=== PATIENT | female | born 1985 | race Hispanic/Latino ===

== ENCOUNTER 2017-06-26 15:33 | Observation (INO) | payer OTHER ==
[~2017-06-26] VITALS: Ht 162.6 cm; Wt 62.1 kg
[2017-06-26] MEDS ORDERED: ACETAMINOPHEN 325 MG TAB PO STA (16:13)
--- NOTE | 2017-06-26 16:56 | Diagnostic Imaging Report ---
PROCEDURE: Frontal and lateral views of the chest. COMPARISON: None. INDICATIONS: COUGH, FEVER, CHEST PAIN, CONGESTION FINDINGS: Lines/tubes: None. Lungs: The lungs are well inflated. Ill-defined opacity in the left lower lobe. There is no evidence of pneumonia or pulmonary edema. Pleura: There is no pleural effusion or pneumothorax. Heart and mediastinum: The heart and the mediastinum are normal. Bones: No acute bony abnormality. IMPRESSION: 1. ill-defined opacity in the left lower lobe, likely representing developing pneumonia given the clinical symptoms Regis Estevez M.D. Dictated by: Regis Estevez M.D. on 06/26/2017 at 16:55 Electronically approved by: Regis Estevez M.D. on 06/26/2017 at 16:55
[2017-06-26] MEDS ORDERED: AZITHROMYCIN 250 MG TAB PO ONE (17:30)
[2017-06-26] MEDS ORDERED: CEFTRIAXONE SOD 1 GM VIAL IM ONE (17:30)
[2017-06-26] MEDS ORDERED: HYDROCODONE/CHLORPHENIRAMINE 5 ML LIQCR PO PRN (17:30)
[2017-06-26] MEDS ORDERED: AZITHROMYCIN 500MG/SOD CHL 0.9% 250ML BAG IV SCH (17:45)
[2017-06-26] MEDS ORDERED: AZITHROMYCIN 500MG/NS 250 ML 250 ML IV SCH (18:00)
[2017-06-26 18:40] LABS: BASOPHILS % 0.5 % (0.0-1.0); HEMATOCRIT 31.8 % (34.2-44.1); HEMOGLOBIN 11.1 g/dL (12.0-16.0); LYMPHOCYTES # (AUTO) 0.2 (1.0-3.2); LYMPHOCYTES % 5.4 % (18.0-39.1); MEAN CORPUSCULAR HEMOGLOBIN 33.1 pg (28-32); MEAN CORPUSCULAR HGB CONC 34.9 g/dL (31-35); MEAN CORPUSCULAR VOLUME 94.9 fL (81-99); MONOCYTES # (AUTO) 0.1 (0.2-0.8); NEUTROPHILS # (AUTO) 3.6 (2.1-6.9); NEUTROPHILS % 91.3 % (38.7-80.0); PLATELET COUNT 232 x10e3/uL (140-360); RED BLOOD COUNT 3.35 x10e6/uL (3.6-5.1); RED CELL DISTRIBUTION WIDTH 18.8 % (11.7-14.4)
[2017-06-26 18:59] LABS: ALANINE AMINOTRANSFERASE 38 IU/L (0-55); ALBUMIN 3.5 g/dL (3.5-5.0); ALBUMIN/GLOBULIN RATIO 0.7 (0.8-2.0); ALKALINE PHOSPHATASE 60 IU/L (40-150); ANION GAP 15.7 mmol/L (8-16); BLOOD UREA NITROGEN 8 mg/dL (7-26); BUN/CREATININE RATIO 15 (6-25); CALCIUM 9.2 mg/dL (8.4-10.2); CARBON DIOXIDE 24 mmol/L (22-29); CHLORIDE 96 mmol/L (98-107); CREATININE, SERUM 0.52 mg/dL (0.57-1.11); EST GLOMERULAR FILTRATION RATE > 60 ML/MIN (60-); GLUCOSE 103 mg/dL (74-118); POTASSIUM 4.7 mmol/L (3.5-5.1); SODIUM 131 mmol/L (136-145)
[2017-06-26 19:26] LABS: BILIRUBIN,URINE NEGATIVE (NEGATIVE); COLOR,URINE YELLOW (YELLOW); KETONES,URINE NEGATIVE (NEGATIVE); LEUKOCYTE ESTERASE ,URINE TRACE (NEGATIVE); NITRITE,URINE NEGATIVE (NEGATIVE); PROTEIN,URINE DIPSTICK NEGATIVE (NEGATIVE); URINE UROBILINOGEN 0.2 mg/dL (0.2 - 1)
[2017-06-26 19:28] LABS: HYPOCHROMASIA SLIGHT; LYMPHOCYTES % (MANUAL) 2 % (19-48); MONOCYTES % (MANUAL) 4 % (3.4-9.0); NEUTROPHILS % (MANUAL) 94 % (40-74); PLATELET ESTIMATE ADEQUATE; PLATELET MORPHOLOGY COMMENT NORMAL; RBC MORPHOLOGY COMMENT NORMAL
[2017-06-26 19:30] LABS: CLARITY,URINE SL CLOUDY (CLEAR)
[2017-06-26 19:39] LABS: BACTERIA,URINE FEW /HPF; EPITHELIAL CELLS,URINE MODERATE /LPF; RBC,URINE 0-5 /HPF (0-5)
[2017-06-26] MEDS: CEFTRIAXONE SOD 1 GM VIAL IV SCH (20:01)
--- OUTSIDE RECORDS SUMMARY | 2017-06-26 20:41 | XMS REPORT | Summary of Care ---
Author Author ELDA Humphreys, ALEXA [facility] Unknown Address Unknown Phone Unavailable Care Team Providers Care Electrical And Radio Mock Up Mechanic Name Role Phone ELDA Humphreys, LAURA Unavailable Unavailable NIKIA PIÑA MD Unavailable Unavailable ELDA HAWKINS [place], LAURA Unavailable Unavailable Unavailable Unavailable Functional Status Name Dates Details Functional status health issues are not documented Status: Name Dates Details Cognitive status health issues are not documented Status: Problems Name Dates Details Arthralgia of both knees (719.46, M25.561) Status: Active Wrist pain, chronic, left (719.43, M25.532) Status: Active Wrist pain, chronic, right (719.43, M25.531) Status: Active Arthralgia of left hand (719.44, M25.542) Status: Active Arthralgia of right hand (719.44, M25.541) Status: Active Chronic pain of both ankles (719.47, M25.571) Status: Active Heartburn (787.1, R12) Status: Active Proximal leg weakness (729.89, R29.898) Status: Active Need for prophylactic vaccination and inoculation against influenza (V04.81, Z23) Status: Active Hematuria, microscopic (599.72, R31.29) Status: Active Elevated transaminase level (790.4, R74.0) Status: Active Productive cough (786.2, R05) Status: Active Upper respiratory infection with cough and congestion (465.9, J06.9) Status: Active Dyspnea (786.09, R06.00) Status: Active Anterior pleuritic pain (786.52, R07.81) Status: Active Leukopenia (288.50, D72.819) Status: Active Elevated sed rate (790.1, R70.0) Status: Active Encounter for [facility] current azathioprine therapy (V58.69, Z79.899) Status: Active Anemia (285.9, D64.9) Status: Active Costochondritis (733.6, M94.0) Status: Active Systemic lupus erythematosus (710.0, M32.9) Status: Active 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, 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 * Quantity: 120 Refills: 2 JAMALYARIA M.D., FAROKH * Start : 04-Sep-2016 Active TraMADol HCl - 50 MG Oral Tablet TAKE 1 TABLET PO EVERY 8 HOURS PRN PAIN * Quantity: 42 Refills: 0 JAMALYARIA M.D., FAROKH * Start : 29-May-2017 Active PredniSONE 10 MG Oral Tablet Take 30mg daily until next visit * Quantity: 42 Refills: 0 JAMALYARIA M.D., FAROKH * Start : 01-Jun-2017 Active Diclofenac Sodium 1 % Transdermal Gel APPLY TO CHEST, 2 GM OF GEL TO AFFECTED AREA 4 TIMES DAILY. DO NOT APPLY MORE THAN 8 GM DAILY TO ANY ONE AFFECTED AREA. * Quantity: 1 Refills: 0 JAMALYARIA M.D., FAROKH * Start : 20-Jun-2017 Active 100 GM Tube Allergies and Adverse Reactions Name Dates Details No Known Drug Allergies (Allergy) Status: Active Procedures Procedure Dates Details [QLH] DIRECT ANTIGLOBULIN TEST (ALAN) Date: 29-May-2017 [N] 2D Echo complete, with Doppler 51720 Date: 29-May-2017 CT Chest w contrast [id number] Date: 29-May-2017 Immunization Name Dates Details Fluzone Quadrivalent 0.5 ML Intramuscular Suspension Prefilled Syringe Lot #: [id number] on: 07-Mar-2016 Social History Name Dates Details - Status: Name Dates Details Never smoker Vital Signs Date Test Result Details [id number] BP Systolic 108 mm[Hg] Status: Comments: Location: LUE; Position: Sitting BP Diastolic 71 mm[Hg] Status: Comments: Location: LUE; Position: Sitting Weight 140 lb Status: Body Mass Index Calculated 24.03 kg/m2 Status: Body Surface Area Calculated 1.68 m2 Status: Temperature 98.1 f Status: Comments: Method: Oral Heart Rate 106 /min Status: Respiration Rate 15 /min Status: [id number]-Rrf-[id number]:46 BP Systolic 105 mm[Hg] Status: BP Diastolic 59 mm[Hg] Status: Weight 138 lb Status: Body Mass Index Calculated 23.69 kg/m2 Status: Body Surface Area Calculated 1.67 m2 Status: Temperature 98.4 f Status: Comments: Method: Oral Heart Rate 105 /min Status: Respiration Rate 16 /min Status: Results Date Description Value Details :00 [QLH] CBC (INCLUDES DIFF/PLT) WBC 4.1 {K/CMM} Range: 3.7-10.4 RBC 3.38 {M/CMM} (Below low threshold) Range: 4.20-5.40 Hgb 11.0 g/dl (Below low threshold) Range: 12.0-16.0 Hct 32.3 % (Below low threshold) Range: 36.0-48.0 MCV 95.8 fL Range: 80.0-98.0 MCH 32.5 pg (Above high threshold) Range: 27.0-31.0 MCHC 33.9 g/dl Range: 32.0-36.0 RDW 18.8 % (Above high threshold) Range: 11.5-14.5 Platelet 336 {K/CMM} Range: 133-450 Mean Platelet Volume 7.9 fL Range: 7.4-10.4 [id number]:00 [QLH] Differential Segmented Neutrophils 90.8 % (Above high threshold) Range: 45.0-75.0 Monocytes 1.4 % (Below low threshold) Range: 2.0-12.0 Lymphocytes 7.4 % (Below low threshold) Range: 20.0-40.0 Basophils 0.4 % Range: 0.0-1.0 Segs-Bands # 3.7 {K/CMM} Range: 1.5-8.1 Lymphocytes # 0.3 {K/CMM} (Below low threshold) Range: 1.0-5.5 Monocytes # 0.1 {K/CMM} Range: 0.0-0.8 :00 [QLH] RETICULOCYTE COUNT Reticulocyte Count Automated 0.8 % Range: 0.5-1.5 00 [QL] CREATINE KINASE, TOTAL Creatine Kinase 223 u/l (Above high threshold) Range: 12-191 [QL] TROPONIN I Troponin-I <0.02 ng/ml Range: 0.00-0.40 [QL] C-REACTIVE PROTEIN CRP 45.3 mg/L (Above high threshold) Range: <=2.9 :00 [QL] URINALYSIS, COMPLETE W/REFLEX TO CULTURE UA Color Yellow Range: Yellow UA Turbidity Slight (Abnormal) Range: Clear UA Spec Grav 1.012 Range: <=1.030 UA pH 6.0 Range: 5.0-8.0 UA Protein Negative mg/dl Range: Negative UA Glucose Negative mg/dl Range: Negative UA Ketones 20 mg/dl (Abnormal) Range: Negative UA Bili Negative Range: Negative UA Blood Negative Range: Negative UA Nitrite Negative Range: Negative UA Leuk Est Moderate (Abnormal) Range: Negative UA WBC 4 {/HPF} Range: 0-5 UA Bacteria Occasional {/HPF} Range: None Seen UA Mucus Few {/LPF} Range: None Seen UA Sq Epi Many {/LPF} (Abnormal) Range: Few UROBILINOGEN <=1.0 mg/dl Range: 0.1-1.0 :00 [QH] PROTEIN, TOTAL W/CREAT, RANDOM URINE U Creatinine 69.70 mg/dl Comments: No established reference ranges. Urine Protein Level 25.0 mg/dl Comments: No established reference ranges. U Prot/Creat 0.36 :00 [H] ALAN GEL ALAN Gel Int Positive 00 [QLH] COMPLEMENT COMPONENT C3C C3 Complement 81 mg/dl (Below low threshold) Range: 88-201 :00 [QLH] COMPLEMENT COMPONENT C4C C4 Complement 16 mg/dl Range: 16-47 [H] ALAN C3 C3 Interp Negative [QLH] HAPTOGLOBIN Haptoglobin 235 mg/dl (Above high threshold) Range: 16-200 : [QLH] VITAMIN B12 Vitamin B12 Level 1297 pg/ml Range: 254-1320 : [H] Iron, TIBC \T\ Ferritin Iron 31 ug/dL Range: 30-160 % Satur Fe 14 % Range: 12-57 TIBC 227 ug/dL (Below low threshold) Range: 228-428 UIBC 196 ug/dL Range: 110-370 Ferritin Lvl 262 ng/ml (Above high threshold) Range: 5-204 [QLH] FOLATE, SERUM Folate Level 35.4 ng/ml Range: >=3.0 : [QH] PATHOLOGIST REVIEW OF PERIPHERAL SMEAR PB Smear Path SEE NOTES Comments: Normocytic Normochromic anemia per Dr. Lou 05/30/2017 11:57 gwElectronic Signature Irena MARTIN 05/30/17 11:57 AM :00 [QLH] DNA (DS) ANTIBODY DNA Antibody (Double-stranded) Positive (Abnormal) Range: Negative [H] DNA Antibody Titer (Double-Stranded) DNA Antibody Titer (Double-stranded) 1:160 (Abnormal) :00 [QLH] CULTURE, URINE, ROUTINE Comments: Source: Urine, Clean CatchBody Site: FINAL REPORT 10,000 - 50,000 CFU/mL Skin Jessy :00 [QLH] LACTATE DEHYDROGENASE ISOENZYME PANEL Lactate Dehydrogenase Total 220 {iu/l} Range: 119-226 Lactate Dehydrogenase 1 18 % Range: 17-32 Lactate Dehydrogenase 2 41 % (Above high threshold) Range: 25-40 Lactate Dehydrogenase 3 23 % Range: 17-27 Lactate Dehydrogenase 4 10 % Range: 5-13 Lactate Dehydrogenase 5 8 % Range: 4-20 Comments: Performed At: [address] [id number] William F MD Ph:[phone] At: [facility] [id number] [place], [place] [id number] Hiren Manzo MD Ph:[phone] [id number] XRAY Chest 2 views [id number] Chest 2 views SEE NOTES Comments: EXAM: XR CHEST 2 VIEWSDATE: 06/20/2017 3:28 PM CSTINDICATION: - M94.0 Chondrocostal junction syndrome [Tietze] COMPARISON: 07/19/2015TECHNIQUE: PA and lateral chest radiographsFINDINGS: Minimal areas of stable linear scarring are seen in the right midlung on the PA view only. No other lung parenchymal or pleural abnormalitiesare seen. Chayo and pulmonary vasculature are normal. Cardiomediastinalsilhouette is normal in appearance. No acute bony abnormality is identified.IMPRESSION: No acute cardiopulmonary abnormality. If further imagingevaluation of the costochondral junctions is warranted clinically, MRI would bethe next imaging study of choice. --Read by: Navjot Tompkins MDDictated Date/time: 06/20/17 15: 58Electronically Signed by: Navjot Tompkins MD 5:59FINAL REPORT [id number] [QL] CMP W/EGFR Sodium Level 140 {mEq/l} Range: 135-145 Potassium Level 3.9 {mEq/l} Range: 3.5-5.1 Chloride Level 103 {mEq/l} Range: 95-109 Carbon Dioxide 31 {mEq/l} Range: 24-32 AGAP 9.9 {mEq/l} (Below low threshold) Range: 10.0-20.0 Glucose Lvl 79 mg/dl Range: 70-99 Comments: Adult reference range values reflect the clinical guidelinesof the [place] [employer]. Creatinine Lvl 0.40 mg/dl (Below low threshold) Range: 0.50-1.40 Blood Urea Nitrogen 12 mg/dl Range: 7-22 BUN/Creatinine Ratio 30 (Above high threshold) Range: 6-25 Total Protein 7.4 g/dl Range: 6.4-8.4 Albumin Lvl 3.4 g/dl (Below low threshold) Range: 3.5-5.0 Globulin 4.0 g/dl Range: 2.7-4.2 A/G Ratio 0.8 Range: 0.7-1.6 Calcium Level Total 8.7 mg/dl Range: 8.5-10.5 ALT 53 u/l Range: 0-65 AST 42 u/l (Above high threshold) Range: 0-37 Bili Total 0.2 mg/dl Range: 0.2-1.3 Alk Phos 81 u/l Range: 39-136 eGFR 136 {ML/MIN/1.7} Comments: The eGFR is calculated using the CKD-EPI formula. In most young, healthyindividuals the eGFR will be >90 mL/min/1.73m2. The eGFR declines with age. AneGFR of 60-89 may be normal in some populations, particularly the elderly, forwhom the CKD-EPI formula has not been extensively validated. Use of the eGFR isnot recommended in the following populations: Individuals with unstable creatinine concentrations, including patients and those with serious co-morbid conditions.Patients with extremes in muscle mass or diet.The data above are obtained from the National Kidney Disease Education Program(NKDEP) which additionally recommends that when the eGFR is used in patientswith extremes of body mass index for purposes of drug dosing, the eGFR shouldbe multiplied by the estimated BMI. Plan of Care Name Dates Details Planned Observations Planned Goals not documented Planned Encounters Appointment; ALEXA WYATT M.D. On: 04-Jul-2017 15:30 Interventions Provided Discussion/Summary* Dear Ms. NIEVES, * I just left voicemail for you: your chest x-ray is normal. One liver enzyme is a tiny bit elevated, likely from higher doses of prednisone. Please decrease that to 15mg daily until next visit in 2 weeks, when we will check it again. * Sincerely, * Dr. Wyatt Instructions Name Dates Details Instructions not documented Encounters Appointment; ALEXA WYATT M.D. Encounter Diagnosis: Problem not documented On: 19-Jul-2015 10:30 Appointment; MICHAEL MERIDA Encounter Diagnosis: Problem not documented On: 23-Jul-2015 13:00 Appointment; ALEXA WYATT M.D. Encounter Diagnosis: Problem not documented On: 27-Jul-2015 13:00 Appointment; ALEXA WYATT M.D. Encounter Diagnosis: Problem not documented On: 07-Sep-2015 16:00 Appointment; ALEXA WYATT M.D. Encounter Diagnosis: Problem not documented On: 26-Oct-2015 11:00 Appointment; LYNN SHARPE M.D. Encounter Diagnosis: Problem not documented On: 09-Dec-2015 14:30 Appointment; ALEXA WYATT M.D. Encounter Diagnosis: Problem not documented On: 20-Dec-2015 9:00 Appointment; ALEXA WYATT M.D. Encounter Diagnosis: Problem not documented On: 07-Mar-2016 15:30 Appointment; ALEXA WYATT M.D. Encounter Diagnosis: Problem not documented On: 13-Jun-2016 15:30 Appointment; ALEXA WYATT M.D. Encounter Diagnosis: Problem not documented On: 07-Aug-2016 16:00 Appointment; MARY JANE-MS, ECHO Encounter Diagnosis: Problem not documented On: 04-Sep-2016 15:00 Appointment; ALEXA WYATT M.D. Encounter Diagnosis: Problem not documented On: 04-Sep-2016 16:00 Appointment; ALEXA WYATT M.D. Encounter Diagnosis: Problem not documented On: 23-Nov-2016 15:00 Appointment; MILAGROORE-MS, ECHO Encounter Diagnosis: Problem not documented On: 05-Dec-2016 16:00 Appointment; ALEXA WYATT M.D. Encounter Diagnosis: Problem not documented On: 06-Mar-2017 16:00 Appointment; ALEXA WYATT M.D. Encounter Diagnosis: Problem not documented On: 29-May-2017 14:00 Appointment; MILAGROORE-MS, ECHO Encounter Diagnosis: Problem not documented On: 29-May-2017 15:00 Appointment; ALEXA WYATT M.D. Encounter Diagnosis: Problem not documented On: 20-Jun-2017 14:30
--- OUTSIDE RECORDS SUMMARY | 2017-06-26 20:41 | XMS REPORT ---
[facility] Address Unknown Phone Unavailable Care Team Providers Care Admin Asst Name Role Phone LATOYA MOMIN Unavailable Unavailable Problems This patient has no known problems. Allergies, Adverse Reactions, Alerts This patient has no known allergies or adverse reactions. Medications This patient has no known medications. Results Test Description Test Time Test Comments Text Results Atomic Results Result Comments CHEST 2 VIEWS [place] [address] Patient Name: JULIANN NIEVES MR #: [id number] : 1985 Age/Sex: 32/F Req #: [id number] Adm Physician: Ordered by: LATOYA MOMIN MD Report #: [id number] Location: ER Room/Bed: Procedure: [id number] DX/CHEST 2 VIEWS Exam Date: 06/26/17 Exam Time: 1636 REPORT STATUS: Signed PROCEDURE: Frontal and lateral views of the chest. COMPARISON: None. INDICATIONS: COUGH, FEVER, CHEST PAIN, CONGESTION FINDINGS: Lines/tubes: None. Lungs: The lungs are well inflated. Ill-defined opacity in the left lower lobe. There is no evidence of pneumonia or pulmonary edema. Pleura: There is no pleural effusion or pneumothorax. Heart and mediastinum: The heart and the mediastinum are normal. Bones: No acute bony abnormality. IMPRESSION: 1. ill-defined opacity in the left lower lobe, likely representing developing pneumonia given the clinical symptoms Dano Estevez M.D. Dictated by: Dano Estevez M.D. on 06/26/2017 at 16:55 Electronically approved by: Dano Estevez M.D. on 2017 at 16:55 Dictated By: DANO ESTEVEZ MD 54 Transcribed By: RITA on 1654 COPY TO: LATOYA MOMIN MD
[2017-06-26] MEDS: HYDROCODONE/CHLORPHENIRAMINE 5 ML LIQCR PO PRN (20:45)
[2017-06-26] MEDS ORDERED: SODIUM CHLORIDE 0.9% 1000ML 1,000 ML IV SCH (20:45)
[2017-06-26] MEDS ORDERED: ACETAMINOPHEN 325 MG TAB PO PRN (20:45)
[2017-06-26] MEDS ORDERED: IBUPROFEN 600 MG TAB PO PRN (20:45)
[2017-06-26 20:47] VITALS: BP 125/59
[2017-06-26 22:03] VITALS: BP 125/59
[2017-06-26 22:18] VITALS: BP 125/59
[2017-06-26 23:41] VITALS: BP 114/72
[2017-06-27 04:00] VITALS: BP 105/69
[2017-06-27] MEDS: CEFTRIAXONE SOD 1 GM VIAL IV SCH (04:46)
[2017-06-27 06:03] LABS: BASOPHILS % 0.5 % (0.0-1.0); HEMATOCRIT 28.5 % (34.2-44.1); HEMOGLOBIN 9.8 g/dL (12.0-16.0); LYMPHOCYTES # (AUTO) 0.4 (1.0-3.2); LYMPHOCYTES % 16.7 % (18.0-39.1); MEAN CORPUSCULAR HEMOGLOBIN 33.3 pg (28-32); MEAN CORPUSCULAR HGB CONC 34.4 g/dL (31-35); MEAN CORPUSCULAR VOLUME 96.9 fL (81-99); MONOCYTES # (AUTO) 0.1 (0.2-0.8); MONOCYTES % 3.7 % (4.4-11.3); NEUTROPHILS # (AUTO) 1.7 (2.1-6.9); NEUTROPHILS % 78.2 % (38.7-80.0); PLATELET COUNT 225 x10e3/uL (140-360); RED BLOOD COUNT 2.94 x10e6/uL (3.6-5.1); RED CELL DISTRIBUTION WIDTH 18.6 % (11.7-14.4)
--- NOTE | 2017-06-27 06:06 | Diagnostic Imaging Report ---
EXAMINATION: CHEST SINGLE (PORTABLE) INDICATION: Pneumonia. COMPARISON: None FINDINGS: TUBES and LINES: None. LUNGS: Lungs are well inflated. Few bilateral upper lobe calcified granulomas present. There is no evidence of pneumonia or pulmonary edema. PLEURA: No pleural effusion or pneumothorax. HEART AND MEDIASTINUM: The cardiomediastinal silhouette is unremarkable. BONES AND SOFT TISSUES: No acute osseous lesion. Soft tissues are unremarkable. UPPER ABDOMEN: No free air under the diaphragm. IMPRESSION: No acute thoracic abnormality. Signed by: Dr. Sanju Chow M.D. on 06/27/2017 6:02 AM
[2017-06-27 06:29] LABS: ALANINE AMINOTRANSFERASE 31 IU/L (0-55); ALBUMIN/GLOBULIN RATIO 0.6 (0.8-2.0); ALKALINE PHOSPHATASE 57 IU/L (40-150); ANION GAP 14.1 mmol/L (8-16); BLOOD UREA NITROGEN 7 mg/dL (7-26); BUN/CREATININE RATIO 14 (6-25); CARBON DIOXIDE 24 mmol/L (22-29); CHLORIDE 104 mmol/L (98-107); EST GLOMERULAR FILTRATION RATE > 60 ML/MIN (60-); GLUCOSE 107 mg/dL (74-118); MAGNESIUM 1.8 MG/DL (1.3-2.1); POTASSIUM 4.1 mmol/L (3.5-5.1); SODIUM 138 mmol/L (136-145)
[2017-06-27 07:09] LABS: LYMPHOCYTES % (MANUAL) 14 % (19-48); MONOCYTES % (MANUAL) 2 % (3.4-9.0); MYELOCYTES % (MANUAL) 1 % (0-0); NEUTROPHILS % (MANUAL) 83 % (40-74); PLATELET ESTIMATE ADEQUATE; PLATELET MORPHOLOGY COMMENT NORMAL; RBC MORPHOLOGY COMMENT NORMAL
[2017-06-27 07:10] LABS: ANISOCYTOSIS SLIGHT
[2017-06-27 09:16] VITALS: BP 99/65
[2017-06-27 10:32] VITALS: BP 99/65
[2017-06-27] MEDS: HYDROCODONE/CHLORPHENIRAMINE 5 ML LIQCR PO PRN (11:12)
[2017-06-27] MEDS ORDERED: PNEUMOCOCCAL VACCINE POLYVALENT 23 MCG/0.5 ML VIAL IM ONE (13:00)
== END 2017-06-27 13:32 | disposition home or self-care (01) ==
LOC: ER 15:33 → EDBEDREQ 19:40 → IMCU 20:39
PROVIDERS: ADMIT Internal Medicine; ATTEND Internal Medicine
DX: J18.9 Pneumonia, unspecified organism (principal); D68.61 Antiphospholipid syndrome; E87.1 Hypo-osmolality and hyponatremia; J81.0 Acute pulmonary edema; D64.9 Anemia, unspecified
CPT/HCPCS: 36415 ×2; 71045; 71046; 80053 ×2; 81001; 83605; 83735; 85025 ×2; 87040; 87086; 87400; 90732; 93005; 99284; G0378 ×2; J0456; J0696 ×2; J7030

== ENCOUNTER 2018-04-23 17:52 | Observation (INO) | payer OTHER ==
[~2018-04-23] VITALS: Ht 162.6 cm; Wt 62.6 kg
--- OUTSIDE RECORDS SUMMARY | 2018-04-23 17:55 | XMS REPORT | Encounter Summary ---
Author Organization Unknown Address [address] [place] [address] Phone [phone] Reason for Visit Medical Complaint Instructions 1. Influenza-like symptoms rapid flu (A+B) Tamiflu 75 mg capsule 2. Tachycardia Discussion Note: None recorded. Patient educational handouts: No information available. Plan of Care Patient Instructions otc tylenol and ibuprofen for fever and body aches. increase fluids. follow up pcp and recheck HR Reminders Provider Appointments None recorded. Lab Rapid Flu (A+B) 06/24/2017 [facility] Referral None recorded. Procedures None recorded. Surgeries None recorded. Imaging None recorded. Medications Name Start Date azathioprine 50 mg tablet hydroxychloroquine 200 mg tablet omeprazole 20 mg capsule,delayed release prednisone 20 mg tablet TAKE ONE AND ONE-HALF (1 AND 1/2) TABLET(S) BY MOUTH ONCE A DAY UNTIL NEXT VISIT. Tamiflu 75 mg capsule Take 1 capsule twice a day by oral route for 5 days. tramadol 50 mg tablet Medications Administered None recorded. Vitals Height Weight BMI Blood Pressure 5 ft 4 in 140 lbs 24 kg/m2 112/78 mm[Hg] Lab Results Date Name Specimen Result Interpretation Description Value Range Status Address Rapid Flu (A+B) Influenza a negative [facility]: [address] [place] [address] Influenza B negative [facility]: [address] [place] [address] Allergies Code Code System Name Reaction Severity Status Onset NKDA Problems None recorded. Procedures None recorded. Vaccine List Vaccine Type influenza, injectable, quadrivalent 03/07/2017 Social History Smoking Status Never Smoker Past Encounters 06/24/2017 Influenza-like Symptoms; Tachycardia Emmanuel Gill, [employer]PER[employer]OR-C: [address] [place] [address], Ph. History of Present Illness Tssbw-Wazabworon-Bgmtaum Reported By: Patient HPI: Location: head/sinuses, chest. Quality: productive cough, nasal/sinus congestion, dry cough. Duration: 2days. Severity: mild, moderate. Onset/Timing: gradual. Context: no sick contacts, no foreign travel, non-smoker. Modifying factors: OTC medication. Associated Symptoms: no sputum production, no shortness of breath, no wheezing, no change in number of pillows needed to sleep at night, no sweats, no significant weight gain, no significant weight loss, no morning cough, no sore throat, no vomiting, no diarrhea, no rash, no nausea, no fever, no headache, muscle aches Review of Systems:ROS as noted in the HPI Review of Systems Basic Reported By: Patient Physical Exam Adult Basic, Adult Female Complete Reported By: Patient Constitutional: General Appearance: healthy-appearing, well-nourished, well-developed. Level of Distress: NAD. Ambulation: ambulating normally Psychiatric: Mental Status: active and alert Eyes: Lids and Conjunctivae: non-injected, no discharge Dxd-Qqfc-Tumnp-Throat: Ears: no lesions on external ear, no outer ear tenderness, EACs clear, TMs clear. Hearing: no hearing loss. Nose: no lesions on external nose, nasal discharge--rhinorrhea; congestion. Lips, Teeth, and Gums: no mouth or lip ulcers. Oropharynx: moist mucous membranes, no erythema, no exudates, tonsils not enlarged Neck: Neck: trachea midline. Lymph Nodes: no cervical LAD Lungs: Respiratory effort: no dyspnea, no tachypnea, no use of accessory muscles, no intercostal retractions. Auscultation: breath sounds normal Cardiovascular: Heart Auscultation: no murmurs, tachycardia
--- OUTSIDE RECORDS SUMMARY | 2018-04-23 17:55 | XMS REPORT | Summary of Care ---
Author Author ELDA Humphreys, ALEXA [facility] Unknown Address Unknown Phone Unavailable Care Team Providers Care Driver Utility Worker Name Role Phone ELDA Humphreys, LAURA Unavailable Unavailable NIKIA PIÑA MD Unavailable Unavailable ELDA HAWKINS [place], LAURA Unavailable Unavailable Unavailable Unavailable Functional Status Name Dates Details Functional status health issues are not documented Status: Name Dates Details Cognitive status health issues are not documented Status: Problems Name Dates Details Wrist pain, chronic, left (719.43, M25.532) Status: [...] Active Hematuria, microscopic (599.72, R31.29) Status: Active Productive cough (786.2, R05) Status: Active Upper respiratory infection with cough and congestion (465.9, J06.9) Status: Active Dyspnea (786.09, R06.00) Status: Active Anterior pleuritic pain (786.52, R07.81) Status: Active Leukopenia (288.50, D72.819) Status: Active Diarrhea (787.91, R19.7) Status: Active Encounter for lobsterman current azathioprine therapy (V58.69, Z79.899) Status: Active Costochondritis (733.6, M94.0) Status: Active Vomiting (787.03, R11.10) Status: Active Pancytopenia (284.19, D61.818) Status: Active Arthralgia of both knees (719.46, M25.561) Status: Active Mixed connective tissue disease (710.8, M35.1) Status: Active Dysphagia (787.20, R13.10) Status: Active Elevated sed rate (790.1, R70.0) Status: Active Night sweats (780.8, R61) Status: Active Long-term use of Plaquenil (V58.69, Z79.899) Status: Active Elevated transaminase level (790.4, R74.0) Status: Active Anemia (285.9, D64.9) Status: Active Systemic lupus erythematosus (710.0, M32.9) Status: Active 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 * Quantity: 90 Refills: 0 JAMALYARIA M.D., FAROKH * Start : 12-Mar-2018 Active PredniSONE 5 MG Oral Tablet TAKE ONE (1) TABLET BY MOUTH ONCE A DAY. MAY INCREASE TO 1.5 TABS DAILY IF NEEDE D * Quantity: 90 Refills: 0 JAMALYARIA M.D., FAROKH * Start : 01-Jun-2017 Active PredniSONE 2.5 MG Oral Tablet TAKE ONE (1) TABLET(S) BY MOUTH ONCE A DAY . TAKE WITH 5 MG TABLET FOR TOTAL YONG LY DOSE OF 7.5 MG. * Quantity: 60 Refills: 0 JAMALYARIA M.D., FAROKH * Start : 02-Jan-2018 Active Aspirin 81 MG Oral Tablet Delayed Release TAKE 1 TABLET DAILY. * Refills: 0 * Start : 14-Dec-2017 Active Iron 325 (65 Fe) MG Oral Tablet Patient taking 500 mg of iron daily * Refills: 0 * Start : 20-Apr-2018 Active Allergies and Adverse Reactions Name Dates Details No Known Drug Allergies (Allergy) Status: Active Procedures Procedure Dates Details [QL] QUANTIFERON(R)-TB GOLD Date: 20-Apr-2018 [QLH] HAPTOGLOBIN Date: 20-Apr-2018 [Q] LACTATE DEHYDROGENASE ISOENZYMES Date: 20-Apr-2018 [QLH] DNA (DS) ANTIBODY Date: 20-Apr-2018 [QLH] URINALYSIS, COMPLETE W/REFLEX TO CULTURE Date: 20-Apr-2018 [QH] PROTEIN, TOTAL W/CREAT, RANDOM URINE Date: 20-Apr-2018 [Q] PROTEIN, TOTAL AND PROTEIN ELECTROPHORESIS W/ REFL CRISTIAN Date: 20-Apr-2018 [Q] DIRECT ANTIGLOBULIN W/REFL ANTI C3,ANTI IGG Date: 23-Apr-2018 [Q] LACTATE DEHYDROGENASE ISOENZYMES Date: 23-Apr-2018 XRAY Chest 2 views [id number] Date: 20-Apr-2018 Immunization Name Dates Details Fluzone Quadrivalent 0.5 ML Intramuscular Suspension Prefilled Syringe Lot #: [id number] on: 07-Mar-2016 Social History Name Dates Details - Status: Name Dates Details Never smoker Vital Signs Date Test Result Details [id number] BP Systolic 99 mm[Hg] Status: Comments: Location: LUE; Position: Sitting BP Diastolic 62 mm[Hg] Status: Comments: Location: LUE; Position: Sitting Weight 137 lb Status: Body Mass Index Calculated 23.52 kg/m2 Status: Body Surface Area Calculated 1.67 m2 Status: Temperature 97.3 f Status: Comments: Method: Oral Heart Rate 91 /min Status: Respiration Rate 16 /min Status: Results Date Description Value Details [id number] [Q] PROTEIN, TOTAL AND PROTEIN ELECTROPHORESIS W/ REFL CRISTIAN PROTEIN, TOTAL 6.5 g/dl (Normal) Range: 6.1-8.1 Plan of Care Name Dates Details Planned Observations Planned Goals not documented Planned Encounters Appointment; ALEXA SCHROEDER M.D. On: 25-May-2018 10:30 Interventions Provided Labs/Procedures/Imaging* [Q] DIRECT ANTIGLOBULIN W/REFL ANTI C3,ANTI IGG; To Be Done: 23 Apr 2018 * [Q] LACTATE DEHYDROGENASE ISOENZYMES; To Be Done: 23 Apr 2018 Instructions Name Dates Details Instructions not documented Encounters Appointment; ALEXA SCHROEDER M.D. Encounter Diagnosis: Problem not documented On: 13-Jun-2016 15:30 Appointment; ALEXA SCHROEDER M.D. Encounter Diagnosis: Problem not documented On: 07-Aug-2016 16:00 Appointment; [facility] Encounter Diagnosis: Problem not documented On: 04-Sep-2016 15:00 Appointment; ALEXA SCHROEDER M.D. Encounter Diagnosis: Problem not documented On: 04-Sep-2016 16:00 Appointment; ALEXA SCHROEDER M.D. Encounter Diagnosis: Problem not documented On: 23-Nov-2016 15:00 Appointment; [facility] Encounter Diagnosis: Problem not documented On: 05-Dec-2016 16:00 Appointment; ALEXA SCHROEDER M.D. Encounter Diagnosis: Problem not documented On: 06-Mar-2017 16:00 Appointment; ALEXA SCHROEDER M.D. Encounter Diagnosis: Problem not documented On: 29-May-2017 14:00 Appointment; [facility] Encounter Diagnosis: Problem not documented On: 29-May-2017 15:00 Appointment; ALEXA SCHROEDER M.D. Encounter Diagnosis: Problem not documented On: 20-Jun-2017 14:30 Appointment; ALEXA SCHROEDER M.D. Encounter Diagnosis: Problem not documented On: 04-Jul-2017 15:30 Appointment; ALEXA SCHROEDER M.D. Encounter Diagnosis: Problem not documented On: 30-Jul-2017 15:30 Appointment; ALEXA SCHROEDER M.D. Encounter Diagnosis: Problem not documented On: 02-Nov-2017 10:00 Appointment; ALEXA SCHROEDER M.D. Encounter Diagnosis: Problem not documented On: 14-Dec-2017 10:30 Appointment; ALEXA SCHROEDER M.D. Encounter Diagnosis: Problem not documented On: 29-Jan-2018 16:00 Appointment; ALEXA SCHROEDER M.D. Encounter Diagnosis: Problem not documented On: 20-Apr-2018 11:30
--- OUTSIDE RECORDS SUMMARY | 2018-04-23 17:55 | XMS REPORT | Continuity of Care Document ---
Author Author [facility] Interface Address Unknown Phone Unavailable Problems Problem Status Onset Date Classification Date Reported Comments Source Influenza-like symptoms 06/24/2017 Diagnosis 06/24/2017 [facility] Tachycardia 06/24/2017 Diagnosis 06/24/2017 [facility] Fever Active Problem 06/27/2017 [facility] Pneumonia Active Problem 06/27/2017 [facility] Medications Medication Details Route Status Patient Instructions Ordering Provider Order Date Source Azathioprine 50 MG Oral Tablet azathioprine 50 mg tablet Active [facility] Hydroxychloroquine Sulfate 200 MG Oral Tablet hydroxychloroquine 200 mg tablet Active [facility] Omeprazole 20 MG Delayed Release Oral Capsule omeprazole 20 mg capsule,delayed release Active [facility] Prednisone 20 MG Oral Tablet prednisone 20 mg tablet TAKE ONE AND ONE-HALF (1 AND 1/2) TABLET(S) BY MOUTH ONCE A DAY UNTIL NEXT VISIT. Active [facility] Oseltamivir 75 MG Oral Capsule [Tamiflu] Tamiflu 75 mg capsule Take 1 capsule twice a day by oral route for 5 days. Active [facility] tramadol hydrochloride 50 MG Oral Tablet tramadol 50 mg tablet Active [facility] Allergies, Adverse Reactions, Alerts Substance Category Reaction Severity Reaction type Status Date Reported Comments Source Immunizations Immunization Date Given Site Status Last Updated Comments Source influenza, injectable, quadrivalent 03/07/2017 completed [facility] Results Order Name Results Value Reference Range Date Interpretation Comments Source Automated blood basophil count (count/volume) Automated blood basophil count (count/volume) 0.0 0.0 - 0.1 06/27/2017 [facility] Automated blood basophil count as percentage of total leukocytes Automated blood basophil count as percentage of total leukocytes 0.5 0.0 - 1.0 06/27/2017 [facility] Automated blood eosinophil count Automated blood eosinophil count 0.0 0.0 - 0.4 06/27/2017 [facility] Automated blood eosinophil count as percentage of total leukocytes Automated blood eosinophil count as percentage of total leukocytes 0.0 0.0 - 6.0 06/27/2017 [facility] Automated blood hematocrit (volume fraction) Automated blood hematocrit (volume fraction) 28.5 34.2 - 44.1 06/27/2017 [facility] Automated blood lymphocyte count as percentage ot total leukocytes Automated blood lymphocyte count as percentage ot total leukocytes 16.7 18.0 - 39.1 06/27/2017 [facility] Automated blood monocyte count as percentage of total leukocytes Automated blood monocyte count as percentage of total leukocytes 3.7 4.4 - 11.3 06/27/2017 [facility] Automated blood neutrophil count Automated blood neutrophil count 1.7 2.1 - 6.9 06/27/2017 [facility] Automated blood platelet count (count/volume) Automated blood platelet count (count/volume) 225 140 - 360 06/27/2017 [facility] Automated blood segmented neutrophil count as percentage of total leukocytes Automated blood segmented neutrophil count as percentage of total leukocytes 78.2 38.7 - 80.0 06/27/2017 [facility] Automated erythrocyte mean corpuscular hemoglobin (mass per erythrocyte) Automated erythrocyte mean corpuscular hemoglobin (mass per erythrocyte) 33.3 28 - 32 06/27/2017 [facility] Automated erythrocyte mean corpuscular hemoglobin concentration measurement (mass/volume) Automated erythrocyte mean corpuscular hemoglobin concentration measurement (mass/volume) 34.4 31 - 35 06/27/2017 [facility] Automated erythrocyte mean corpuscular volume Automated erythrocyte mean corpuscular volume 96.9 81 - 99 06/27/2017 [facility] Blood anisocytosis detection by light microscopy Blood anisocytosis detection by light microscopy SLIGHT 06/27/2017 [facility] Blood erythrocytes automated count (number/volume) Blood erythrocytes automated count (number/volume) 2.94 3.6 - 5.1 06/27/2017 [facility] Blood hemoglobin measurement (moles/volume) Blood hemoglobin measurement (moles/volume) 9.8 12.0 - 16.0 06/27/2017 [facility] Blood leukocytes automated count (number/volume) Blood leukocytes automated count (number/volume) 2.15 4.8 - 10.8 06/27/2017 [facility] Blood lymphocytes count (number/volume) Blood lymphocytes count (number/volume) 0.4 1.0 - 3.2 06/27/2017 [facility] Blood monocytes automated count (number/volume) Blood monocytes automated count (number/volume) 0.1 0.2 - 0.8 06/27/2017 [facility] Blood platelets count by estimate (number/volume) Blood platelets count by estimate (number/volume) ADEQUATE 06/27/2017 [facility] Estimated glomerular filtration rate (GFR) determination Estimated glomerular filtration rate (GFR) determination null 60 06/27/2017 [facility] Glucose measurement Glucose measurement 107 74 - 118 06/27/2017 [facility] Manual blood lymphocytes/100 leukocytes Manual blood lymphocytes/100 leukocytes 14 19 - 48 06/27/2017 [facility] Manual blood monocytes/100 leukocytes Manual blood monocytes/100 leukocytes 2 3.4 - 9.0 06/27/2017 [facility] Manual blood myelocytes/100 leukocytes Manual blood myelocytes/100 leukocytes 1 0 - 0 06/27/2017 [facility] Manual blood neutrophils/100 leukocytes Manual blood neutrophils/100 leukocytes 83 40 - 74 06/27/2017 [facility] Plasma globulin measurement (mass/volume) Plasma globulin measurement (mass/volume) 4.7 2.3 - 3.5 06/27/2017 [facility] Platelet morphology Platelet morphology NORMAL 06/27/2017 [facility] RBC morphology RBC morphology NORMAL 06/27/2017 [facility] Serum or plasma alanine aminotransferase measurement (enzymatic activity/volume) Serum or plasma alanine aminotransferase measurement (enzymatic activity/volume) 31 0 - 55 06/27/2017 [facility] Serum or plasma albumin measurement (mass/volume) Serum or plasma albumin measurement (mass/volume) 3.0 3.5 - 5.0 06/27/2017 [facility] Serum or plasma albumin/globulin mass ratio Serum or plasma albumin/globulin mass ratio 0.6 0.8 - 2.0 06/27/2017 [facility] Serum or plasma alkaline phosphatase measurement (enzymatic activity/volume) Serum or plasma alkaline phosphatase measurement (enzymatic activity/volume) 57 40 - 150 06/27/2017 [facility] Serum or plasma anion gap Serum or plasma anion gap 14.1 8 - 16 06/27/2017 [facility] Serum or plasma calcium measurement (mass/volume) Serum or plasma calcium measurement (mass/volume) 9.0 8.4 - 10.2 06/27/2017 [facility] Serum or plasma carbon dioxide, total measurement (moles/volume) Serum or plasma carbon dioxide, total measurement (moles/volume) 24 22 - 29 06/27/2017 [facility] Serum or plasma chloride measurement (moles/volume) Serum or plasma chloride measurement (moles/volume) 104 98 - 107 06/27/2017 [facility] Serum or plasma creatinine measurement (mass/volume) Serum or plasma creatinine measurement (mass/volume) 0.50 0.57 - 1.11 06/27/2017 [facility] Serum or plasma magnesium measurement (mass/volume) Serum or plasma magnesium measurement (mass/volume) 1.8 1.3 - 2.1 06/27/2017 [facility] Serum or plasma potassium measurement (moles/volume) Serum or plasma potassium measurement (moles/volume) 4.1 3.5 - 5.1 06/27/2017 [facility] Serum or plasma protein measurement (mass/volume) Serum or plasma protein measurement (mass/volume) 7.7 6.5 - 8.1 06/27/2017 [facility] Serum or plasma sodium measurement (moles/volume) Serum or plasma sodium measurement (moles/volume) 138 136 - 145 06/27/2017 [facility] Serum or plasma total bilirubin measurement (mass/volume) Serum or plasma total bilirubin measurement (mass/volume) null 0.2 - 1.2 06/27/2017 [facility] Serum or plasma urea nitrogen measurement (mass/volume) Serum or plasma urea nitrogen measurement (mass/volume) 7 7 - 26 06/27/2017 [facility] Serum or plasma urea nitrogen/creatinine mass ratio Serum or plasma urea nitrogen/creatinine mass ratio 14 6 - 25 06/27/2017 [facility] Red Cell Distribution Width 18.6 11.7 - 14.4 06/27/2017 [facility] IM GRANULOCYTES % 0.9 0.0 - 1.0 06/27/2017 [facility] Absolute Immature Granulocyte (auto 0.02 0 - 0.1 06/27/2017 [facility] Differential Total Cells Counted 100 06/27/2017 [facility] Aspartate Amino Transf (AST/SGOT) 29 5 - 34 06/27/2017 [facility] Lactic Acid Level 16.5 4.5 - 19.8 06/26/2017 [facility] Blood hypochromia detection by light microscopy Blood hypochromia detection by light microscopy SLIGHT 06/26/2017 [facility] Automated urine sediment leukocyte count by microscopy (number/high power field) Automated urine sediment leukocyte count by microscopy (number/high power field) null 0 - 5 06/26/2017 [facility] Bacteria detection in urine sediment by light microscopy Bacteria detection in urine sediment by light microscopy FEW NONE 06/26/2017 [facility] Epithelial cells detection in urine sediment by light microscopy Epithelial cells detection in urine sediment by light microscopy MODERATE NONE 06/26/2017 [facility] Erythrocytes detection in urine sediment by light microscopy Erythrocytes detection in urine sediment by light microscopy null 0 - 5 06/26/2017 [facility] Specific gravity of Urine by Test strip Specific gravity of Urine by Test strip 1.015 1.010 - 1.025 06/26/2017 [facility] Urine clarity Urine clarity SL CLOUDY CLEAR 06/26/2017 [facility] Urine color determination Urine color determination YELLOW YELLOW 06/26/2017 [facility] Urine erythrocytes detection Urine erythrocytes detection NEGATIVE NEGATIVE 06/26/2017 [facility] Urine glucose detection Urine glucose detection NEGATIVE NEGATIVE 06/26/2017 [facility] Urine ketones detection by automated test strip Urine ketones detection by automated test strip NEGATIVE NEGATIVE 06/26/2017 [facility] Urine leukocyte esterase detection by dipstick Urine leukocyte esterase detection by dipstick TRACE NEGATIVE 06/26/2017 [facility] Urine nitrite detection Urine nitrite detection NEGATIVE NEGATIVE 06/26/2017 [facility] Urine pH measurement by automated test strip Urine pH measurement by automated test strip 8 5 - 7 06/26/2017 [facility] Urine protein measurement by test strip (mass/volume) Urine protein measurement by test strip (mass/volume) NEGATIVE NEGATIVE 06/26/2017 [facility] Urine total bilirubin measurement (mass/volume) Urine total bilirubin measurement (mass/volume) NEGATIVE NEGATIVE 06/26/2017 [facility] Urine urobilinogen measurement by test strip (mass/volume) Urine urobilinogen measurement by test strip (mass/volume) 0.2 0.2 - 1 06/26/2017 [facility] Influenza virus A and B antigen identification by immunofluorescence Influenza virus A and B antigen identification by immunofluorescence NEGATIVE NEGATIVE 06/26/2017 [facility] Influenza A negative 06/24/2017 [facility] Influenza B negative 06/24/2017 [facility] Vital Signs Vital Sign Value Date Comments Source Diastolic (mm Hg) 78 06/24/2017 [facility] Height 64 06/24/2017 [facility] Systolic (mm Hg) 112 06/24/2017 [facility] Weight 140 06/24/2017 [facility] Encounters Location Location Details Encounter Type Encounter Number Reason For Visit Attending Provider ADM Date DC Date Status Source [place] - [facility] - [id number]icolette Gill, FITTER HAND-C: [address] [address], Ph. [id number] Emmanuel Gill 06/24/2017 [facility] Discharged Inpatient (obs) [id number] JACQUELINE MALLORY MD 06/26/2017 06/27/2017 [facility] Procedures Procedure Code Date Perfomer Comments Source X-ray of chest, two views [id number] 06/26/2017 [facility]
[2018-04-23] MEDS ORDERED: SODIUM CHLORIDE 0.9% 1000ML 1,000 ML IV STA (18:27)
[2018-04-23 18:46] LABS: BASOPHILS % 0.2 % (0.0-1.0); HEMATOCRIT 26.6 % (34.2-44.1); HEMOGLOBIN 8.1 g/dL (12.0-16.0); LYMPHOCYTES # (AUTO) 0.3 (1.0-3.2); LYMPHOCYTES % 6.8 % (18.0-39.1); MEAN CORPUSCULAR HEMOGLOBIN 25.4 pg (28-32); MEAN CORPUSCULAR HGB CONC 30.5 g/dL (31-35); MEAN CORPUSCULAR VOLUME 83.4 fL (81-99); MONOCYTES # (AUTO) 0.1 (0.2-0.8); MONOCYTES % 2.1 % (4.4-11.3); NEUTROPHILS # (AUTO) 4.3 (2.1-6.9); NEUTROPHILS % 90.1 % (38.7-80.0); PLATELET COUNT 229 x10e3/uL (140-360); RED BLOOD COUNT 3.19 x10e6/uL (3.6-5.1); RED CELL DISTRIBUTION WIDTH 17.3 % (11.7-14.4)
[2018-04-23] MEDS ORDERED: OMEPRAZOLE20 MG PO (18:55)
[2018-04-23] MEDS ORDERED: FOLIC ACID1 MG PO (18:55)
[2018-04-23] MEDS ORDERED: LOW DOSE ASPIRI81 MG PO (18:55)
[2018-04-23] MEDS ORDERED: PREDNISONE5 MG PO (18:55)
[2018-04-23] MEDS ORDERED: FOLITAB 500 CA1 EACH PO (18:55)
[2018-04-23] MEDS ORDERED: HYDROXYCHLOROQ200 MG PO (18:55)
[2018-04-23] MEDS ORDERED: ULTRAM 50MG50 MG PO (18:56)
[2018-04-23] MEDS ORDERED: ADVIL MIGRAINE200 MG PO (18:56)
[2018-04-23 18:57] LABS: INR 0.99
[2018-04-23 18:58] LABS: PARTIAL THROMBOPLASTIN TIME 35.7 seconds (23.8-35.5)
[2018-04-23 19:05] LABS: ALANINE AMINOTRANSFERASE 39 IU/L (0-55); ALBUMIN 2.5 g/dL (3.5-5.0); ALBUMIN/GLOBULIN RATIO 0.6 (0.8-2.0); ALKALINE PHOSPHATASE 50 IU/L (40-150); ANION GAP 13.7 mmol/L (8-16); BLOOD UREA NITROGEN 7 mg/dL (7-26); BUN/CREATININE RATIO 13 (6-25); CALCIUM 8.3 mg/dL (8.4-10.2); CARBON DIOXIDE 23 mmol/L (22-29); CHLORIDE 102 mmol/L (98-107); CREATININE, SERUM 0.55 mg/dL (0.57-1.11); EST GLOMERULAR FILTRATION RATE > 60 ML/MIN (60-); GLUCOSE 88 mg/dL (74-118); POTASSIUM 3.7 mmol/L (3.5-5.1); SODIUM 135 mmol/L (136-145)
[2018-04-23] MEDS ORDERED: SODIUM CHLORIDE 0.9% 250ML 250 ML IV ONE (19:15)
[2018-04-23] MEDS ORDERED: ACETAMINOPHEN 325 MG TAB PO ONE (19:30)
[2018-04-23] MEDS ORDERED: ONDANSETRON HCL INJ 2 MG/ML VIAL IV PRN (19:30)
[2018-04-23] MEDS ORDERED: TRAMADOL HCL 50 MG TAB PO PRN (19:30)
[2018-04-23] MEDS ORDERED: ACETAMINOPHEN 325 MG TAB PO PRN (19:30)
[2018-04-23] MEDS ORDERED: SODIUM CHLORIDE FLUSH 10 ML SYR INJ PRN (19:30)
[2018-04-23 20:10] LABS: FERRITIN 766.33 ng/mL (4.63-204.00)
--- NOTE | 2018-04-23 20:10 | NUR ---
consent obtained fo transfusion of blood
[2018-04-23 20:33] LABS: BILIRUBIN,URINE NEGATIVE (NEGATIVE); CLARITY,URINE SL CLOUDY (CLEAR); COLOR,URINE YELLOW (YELLOW); KETONES,URINE NEGATIVE (NEGATIVE); LEUKOCYTE ESTERASE ,URINE TRACE (NEGATIVE); NITRITE,URINE NEGATIVE (NEGATIVE); PROTEIN,URINE DIPSTICK NEGATIVE (NEGATIVE); URINE UROBILINOGEN 0.2 mg/dL (0.2 - 1)
--- NOTE | 2018-04-23 20:38 | History and Physical ---
CHIEF COMPLAINT: This patient comes in with symptomatic tachycardia and anemia. HISTORY OF PRESENTING ILLNESS: This patient's history is a week prior to patient coming to the hospital the patient had increased amount of tiredness, excessive fatigue, and went to her primary care physician, Dr. Higgins. A blood level was done. Hemoglobin was revealed to be 8. At that time, the patient was given some iron and folic acid, and also rheumatological consult was done where more blood work was done. The patient's fatigue was not resolving and hemolysis was suspected and the patient was sent to the emergency room for a possible blood transfusion and also further workup of hemolytic anemia possibility. PAST MEDICAL HISTORY: History of lupus erythematosus, history of Raynaud syndrome, history of antiphospholipid syndrome, history of polymyositis. PAST SURGICAL HISTORY: Noncontributory. No surgeries in the past. MEDICINES SHE TAKES AT HOME: Aspirin 81 mg, ferrous sulfate FoliTab 500 mg daily, folic acid 1 mg daily, hydroxychloroquine 200 mg to 400 mg daily, ibuprofen 200 mg 3 times a day, omeprazole 20 mg daily, prednisone 5 mg daily, and tramadol 50 mg as needed. SOCIAL HISTORY: No ETOH. No IV drug abuse. No history of alcohol abuse either and no smoking. She has been once. Initial ended up in a stillbirth, and the patient was at this point of time discovered to be as antiphospholipid syndrome. REVIEW OF SYSTEMS: Negative for chest pain. Positive for some shortness of breath. No nausea, vomiting, diarrhea. No constipation, no rectal bleeding. No hematochezia, no hematemesis. Positive for extreme fatigue. PHYSICAL EXAMINATION GENERAL: Patient is alert and oriented x3. VITAL SIGNS: Temperature is 99.7, pulse of 122, blood pressure is 115/75, pulse oximetry is 100%. HEENT: Normocephalic, atraumatic. Sclera is anicteric. Pupils react to light and accommodation. CVS: S1 and S2. Tachycardic. ABDOMEN: Nontender, nondistended. EXTREMITIES: No clubbing, no cyanosis, no edema. Positive for tenderness in all the distal pharyngeal joints. LABORATORY VALUES: Sodium was 135, potassium was 3.7, chloride of 102, BUN of 7, creatinine of 0.55. hCG was negative. Albumin is 2.5, globulin 4.2. Coags were PT of 14, PTT of 0.99. Hematology: White count was 4.72, hemoglobin of 8.1, hematocrit of 26.6, platelet count was 229, and lymphocyte count was 6.8. ASSESSMENT: Anemia, symptomatic. Will go ahead and give her a transfusion of 2 units of PRBCs. From the blood, she does not look like she is hemolyzing. LDH will be added. Will talk to her stock cutter in the morning. Will restart all her medications and also add a retic count. Further recommendations on clinical course and also depending on the LDH values. If the hemoglobin is settled and has gone up to 10s, the patient can be discharged home and be followed up with the stock cutter. She also will need Heme-Onc on board to figure out her antiphospholipid syndrome and also need of anticoagulation. Further recommendations on clinical course. Will continue to monitor the patient. Also call her stock cutter in the morning and check her post-transfusion H&H tomorrow in the morning. Job#: [id number]
[2018-04-23 20:49] LABS: BACTERIA,URINE MANY /HPF; EPITHELIAL CELLS,URINE MANY /LPF; TRANSITIONAL EPI CELLS,URINE FEW; WBC,URINE (MAN) 0-5 /HPF (0-5)
--- NOTE | 2018-04-23 20:53 | NUR ---
PT PLACED ON TELE BOX [id number]
[2018-04-23 21:15] VITALS: BP 111/66
[2018-04-23] MEDS ORDERED: DIPHENHYDRAMINE HCL 25 MG CAP PO ONE (21:45)
[2018-04-23] MEDS ORDERED: SODIUM CHLORIDE 0.9% 250ML 250 ML ONE (22:38)
[2018-04-24] VITALS (8 sets, daily range): BP systolic 100–114; BP diastolic 54–74
[2018-04-24] MEDS ORDERED: SODIUM CHLORIDE 0.9% 250ML 250 ML ONE (02:02)
--- NOTE | 2018-04-24 03:53 | NUR ---
PT ARRIVED ON THE UNIT VIA STRETCHER AT 2100. PT IS A&OX3. PT DENIES CHEST PAIN, SOB, AND N/V. RESPIRATION IS EVEN AND UNLABORED, NO DISTRESS NOTED. PT ORIENTED TO THE ROOM, BED IN THE LOWEST POSITION, LOCKED, AND CALL LIGHT WITHIN REACH. ADMISSION AND HEAD TO TOE ASSESSMENT COMPLETE. WILL CONTINUE TO MONITOR.
--- NOTE | 2018-04-24 04:30 | NUR ---
2 UNITS OF PRBC IS COMPLETE. NO REACTION NOTED. WILL CONTINUE TO MONITOR.
--- NOTE | 2018-04-24 07:02 | Progress Note ---
DATE: Patient is here for symptomatic anemia, status post transfusion of 2 units of PRBC. She is doing better. Slept well. Tachycardia has decreased and her palpitations have decreased too. Patient is currently on her regular medications, which includes aspirin, ferrous sulfate, folic acid, hydroxychloroquine, ibuprofen, omeprazole, prednisone, and tramadol. OBJECTIVE VITAL SIGNS: Temperature is 100.7, pulse 122, respirations of 18, blood pressure is 100/54. She is 98% on room O2. HEENT: Normocephalic and atraumatic. Pupils are reactive to light and accommodation. CV: S1 and S2 tachycardic. ABDOMEN: Nontender and nondistended. EXTREMITIES: No clubbing. No cyanosis. No edema. Positive for musculoskeletal changes present. LABORATORY VALUES: White count and hemoglobin from yesterday was 8.1 and hematocrit of 26.6. White count is 4.72. Chemistry: Sodium is 135, estimated GFR is about 60 with a creatinine of 0.55. Her iron level was 11. TIBC 179, present saturation of 6. Transferrin was 128 and ferritin was 766.3. AST was 61, LDH of 377. was negative. Chest x-ray not done. ASSESSMENT 1. Acute symptomatic anemia, probably hemolytic in nature: LDH was elevated. Will consult her body coverer today. Patient will need a hematology consult too. Iron transition can be done. The patient will need biologicals to control her lupus erythematosus and her hemolysis. 2. Lupus erythematosus: Continue on hydroxychloroquine. 3. History of antiphospholipid syndrome: Patient is on aspirin for anticoagulation. The patient's symptoms have been decreased. Will talk to body coverer today. Running fever at this time. Will keep her in-house until fever has resolved. Further recommendations per clinical course. Will continue monitoring the patient. FINAL DIAGNOSIS: Anemia of hemolysis. Job#: [id number] [place]
--- NOTE | 2018-04-24 07:21 | Progress Note ---
DATE: ADDENDUM The patient also is going to get a haptoglobin test today and consult with Dr. Phipps for possible antiphospholipid syndrome. Needs also prednisone for hemolytic anemia. Will consult natural remedy consultant and also put her on prednisone 1 mg/kg and check haptoglobin, and also check LDH for hemolysis. Job#: [id number] [place]
[2018-04-24] MEDS ORDERED: IRON DEXTRAN INJ 25 MG in SODIUM CHLORIDE 0.9% 100 ML 100 ML IV NR (07:30)
[2018-04-24 07:47] LABS: BASOPHILS % 0.3 % (0.0-1.0); HEMATOCRIT 28.9 % (34.2-44.1); HEMOGLOBIN 9.1 g/dL (12.0-16.0); LYMPHOCYTES # (AUTO) 0.4 (1.0-3.2); LYMPHOCYTES % 10.1 % (18.0-39.1); MEAN CORPUSCULAR HEMOGLOBIN 26.2 pg (28-32); MEAN CORPUSCULAR HGB CONC 31.5 g/dL (31-35); MEAN CORPUSCULAR VOLUME 83.3 fL (81-99); MONOCYTES # (AUTO) 0.1 (0.2-0.8); MONOCYTES % 2.8 % (4.4-11.3); NEUTROPHILS # (AUTO) 3.3 (2.1-6.9); NEUTROPHILS % 85.8 % (38.7-80.0); PLATELET COUNT 199 x10e3/uL (140-360); RED BLOOD COUNT 3.47 x10e6/uL (3.6-5.1); RED CELL DISTRIBUTION WIDTH 16.5 % (11.7-14.4)
[2018-04-24 08:39] LABS: ALANINE AMINOTRANSFERASE 31 IU/L (0-55); ALBUMIN 2.1 g/dL (3.5-5.0); ALBUMIN/GLOBULIN RATIO 0.6 (0.8-2.0); ALKALINE PHOSPHATASE 46 IU/L (40-150); ANION GAP 11.4 mmol/L (8-16); BLOOD UREA NITROGEN 6 mg/dL (7-26); BUN/CREATININE RATIO 15 (6-25); CALCIUM 7.8 mg/dL (8.4-10.2); CARBON DIOXIDE 22 mmol/L (22-29); CHLORIDE 109 mmol/L (98-107); CREATININE, SERUM 0.41 mg/dL (0.57-1.11); EST GLOMERULAR FILTRATION RATE > 60 ML/MIN (60-); GLUCOSE 71 mg/dL (74-118); POTASSIUM 3.4 mmol/L (3.5-5.1); SODIUM 139 mmol/L (136-145)
[2018-04-24] MEDS ORDERED: FERROUS SULFATE PO SCH (09:00)
[2018-04-24] MEDS ORDERED: IRON DEXTRAN INJ 500 MG in SODIUM CHLORIDE 0.9% 500ML 500 ML IV ONE (09:00)
[2018-04-24] MEDS ORDERED: PREDNISONE 5 MG TAB PO SCH (09:00)
[2018-04-24] MEDS ORDERED: FOLIC ACID PO SCH (09:00)
[2018-04-24] MEDS ORDERED: PANTOPRAZOLE SOD 40 MG TABEC PO SCH (09:00)
[2018-04-24] MEDS ORDERED: HYDROXYCHLOROQUINE SULFATE 200 MG TAB PO SCH (09:00)
[2018-04-24] MEDS ORDERED: ASCORBIC ACID PO SCH (09:00)
[2018-04-24] MEDS ORDERED: FOLIC ACID 1 MG TAB PO SCH (09:00)
--- NOTE | 2018-04-24 10:36 | NUR ---
CASE MANAGEMENT INITIAL ASSESSMENT Medical Insurance Clerk to bedside to discuss plan of care with patient/family. CM/SW role and care transitions discussed. Anticipated discharge plan discussed along with duration of care. CM/SW discussed patients right to make decisions in care. CM/SW work hours given. Patient lives: IN OWN HOME WITH FAMILY Admit/Transfer: VIA ED FROM HOME POA/Emergency contact: SISTER PANFILO SAUCEDO [phone] Current/Previous Home Health: NONE PCP/Follow-up Care: DEM[facility]RICE Current/Previous DME: NONE Other Services: NONE Employment Status: [employer] Areas of Concerns: NONE Referral Needs: NONE Education Needs: NONE IMM/AGUDELO given and signed (if applicable): NA Goal for discharge: RETURN HOME INDEPENDENTLY CM/SW left business card at the bedside with contact information. Name and number was also written on the patients whiteboard. Patient verbalized understanding of discussion. CM will follow-up with ongoing discharge and transition of care needs.
--- NOTE | 2018-04-24 16:23 | NUR ---
Nutrition Screen Note RD Recommendation for Physician: -Continue cardiac diet as ordered -If PO <50%, consider Ensure Compact -Encourage PO and hydration Plan of Care: RD following, monitoring for tolerance and adequacy Nutrition reason for involvement: Nutrition Risk Trigger MST Primary Diagnose(s): Acute symptomatic anemia PMH: lupus erythematosus, Raynaud syndrome, antiphospholipid syndrome, polymyositis Ht: 64in Wt: 138lb BMI: 23.7kg/m2 IBW: 120lb RD Assessment: (04/24) Chart reviewed. Labs and meds reviewed. 33yo F, who is admitted for anemia. Visited pt in the room. Pt reports good appetite with >50% meal intake. No GI complains noted. LBM 04/24, normal per pt. Pt reports ~10lbs weight loss for unknown amount of time. UBW ~140-145lbs. No complains of chewing or swallowing difficulty. Will continue to monitor and follow. Current Diet: cardiac diet Malnutrition Evaluation (04/24) The patient does not meet criteria for a specified degree of malnutrition at this time. Will re-evaluate at follow-up as appropriate. Energy intake: Poor intake for long time. Weight loss: ~10lbs for unknown amount of time per pt. No physical sign of malnutrition upon NFPA. Diet Education Needs Assessment: Diet education not indicated. Nutrition Care Level: low Signed: Lila Mohamud MS, RD, LD
--- NOTE | 2018-04-24 18:21 | Consultation ---
DATE OF CONSULTATION: REQUESTING PHYSICIAN: Dr. Varun King. SERVICE: Hematology-oncology service. REASON FOR CONSULTATION: Evaluation and management of patient with anemia and antiphospholipid syndrome. HISTORY OF PRESENTING ILLNESS: Ms. Oconnor is a very pleasant 33-year-old young female with known history of systemic lupus erythematosus, Raynaud's syndrome, history of antiphospholipid syndrome, and polymyositis, admitted through emergency department due to symptomatic anemia. She has had outpatient workup for anemia which remained nondiagnostic. She also had been treated with IV iron infusion without much response to the treatment. Now she is admitted to have blood transfusion. Hematology/oncology has been consulted to assist with the management. Presently, she is sitting comfortably, not in any acute distress. She has had 2 units of PRBC transfusion with improved symptom as well as blood count. She said that she has been having night sweats and hot flashes. She also lost 10 pounds weight over a month. She has a history of antiphospholipid syndrome and has had a stillbirth later on that led to the diagnosis of antiphospholipid syndrome. She never had DVT or pulmonary embolism. PAST MEDICAL HISTORY 1. Known history of anemia. 2. Systemic lupus erythematosus. 3. History of Raynaud's syndrome. 4. Antiphospholipid syndrome. 5. History of polymyositis. PAST SURGICAL HISTORY: None. SOCIAL HISTORY: She denies history of alcohol use, illicit drug use or smoking history. She had been once and had a stillbirth at that time and that led to the diagnosis of antiphospholipid syndrome. ALLERGIES: REVIEWED AND PER ELECTRONIC MEDICAL RECORD. CURRENT MEDICATIONS: Reviewed and as per electronic medical record. REVIEW OF SYSTEMS: Fourteen-point review of systems negative except as mentioned in history of present illness. PHYSICAL EXAMINATION VITAL SIGNS: Reviewed, as per electronic medical record. HEENT: Extraocular movement intact. Head atraumatic and normocephalic. NECK: Supple. CV: S1, S2 audible. RESPIRATORY: Decreased bilateral air entry. ABDOMEN: Soft. Positive bowel sounds. EXTREMITIES: Moving all extremities. NEURO: The patient is alert, awake. LABORATORY DATA: White blood cell count of 8.8 and hemoglobin 9.1, hematocrit 28.9, platelets 199. BUN 6, creatinine 0.4. LDH 377. Ferritin 766, iron 11, and retic count on the low side. ASSESSMENT AND PLAN: Ms. Oocnnor is a very pleasant 33-year-old young female with known history of systemic lupus erythematosus, Raynaud's phenomenon, known diagnosis of antiphospholipid syndrome, and history of complicated anemia requiring outpatient workup which remained nondiagnostic. She has been treated with intravenous iron infusion without much improvement. She has been admitted to have packed red blood cells transfusion. Hematology/oncology has been consulted to assist with the management. I reviewed the record and discussed at length with the patient about her current disease status and importance of further workup. Overall cause of anemia is uncertain, though presentation especially having hot flashes and weight loss is very concerning. Her white cell count is also on the low side. At this point, from anemia standpoint, I have recommended to closely monitor and recommended a bone marrow aspiration and biopsy in outpatient setting. Overall picture does not appear to fit iron deficiency state or hemolytic anemia as ferritin level is markedly elevated and normal bilirubin, low retic count against hemolytic anemia. This very well could be a bone marrow suppression secondary to her lupus. I have recommended close monitoring and followup. She does have a history of antiphospholipid syndrome, though never had DVT or pulmonary embolism. She had been on baby aspirin which I would recommend to continue. No anticoagulation recommended. Above plan has been discussed at length with the patient as well as primary attending. Patient has been recommended to follow up in outpatient setting to have further workup, repeat count, and possible bone marrow aspiration biopsy. Thank you, Dr. King, for the consult. I will continue to be available. Please call with questions. Job#: [id number] [id number]
== END 2018-04-24 18:59 | disposition home or self-care (01) ==
LOC: ER 17:52 → ERHOLD 20:39 → IMCU 21:13
PROVIDERS: ADMIT Family Medicine; ATTEND Family Medicine
DX: D50.0 Iron deficiency anemia secondary to blood loss (chronic) (principal); R00.0 Tachycardia, unspecified; I73.00 Raynaud's syndrome without gangrene; M33.20 Polymyositis, organ involvement unspecified; D68.61 Antiphospholipid syndrome; M32.9 Systemic lupus erythematosus, unspecified
CPT/HCPCS: 36415 ×2; 36430; 80053 ×2; 81001; 82728; 83010; 83540; 83615; 84466; 84702; 85025 ×2; 85045; 85610; 85730; 86850; 86900; 86920; 87086; 99284; G0378 ×2; J1750; J7030; J7050 ×2; J7512; P9016 ×2; S0164; J7040